=== PATIENT | male | born 1990 | race Caucasian/White ===

== ENCOUNTER 2019-05-05 11:06 | Emergency (ER) | payer BC ==
[2019-05-05 11:15] VITALS: BP 143/91; PULSE 71
[2019-05-05] MEDS ORDERED: Sodium Chloride 0.9% 10 ML Syringe FLUSH PRN (11:52)
--- NOTE | 2019-05-05 11:52 | EDM.PDOC ---
ED HPI GENERAL MEDICAL PROBLEM - General Chief Complaint: Abdominal Pain Stated Complaint: RT SIDE PAIN Time Seen by Provider: 05/05/19 11:27 Source of Information: Reports: Patient History Limitations: Reports: No Limitations - History of Present Illness INITIAL COMMENTS - FREE TEXT/NARRATIVE: Patient is a 28-year-old male who presents with complaints of right-sided abdominal pain that started around 8:00 this morning. The pain was not present at time of exam; however, patient states that at home it was fairly significant. He states that when he left his house the pain was intense, by the time he arrived to the ER parking lot the pain had improved to the point where he almost went home. The pain did then shortly return. He describes the pain as sharp that radiates to his back and groin. He has no nausea, vomiting, diarrhea, fever, or chills associated with this pain. He does note that this morning he had some burning with urination. He denies any visible blood in his urine. Patient does have a history of kidney stones with his last being approximately 6 years ago. He was able to pass that stone without intervention. He denies any chronic health problems. He does not take any daily medications. At this time he states the pain is not present so he does not feel that he needs any medications for pain or nausea. Right Abdomen Pain Score (Numeric/FACES): 8 - Related Data Allergies Allergy/AdvReac Type Severity Reaction Status Date / Time No Known Allergies Allergy Verified 08/28/14 13:44 Home Meds: Home Meds Acetaminophen/oxyCODONE [Percocet 325-5 MG] 1 each PO Q4HR PRN #10 tab 05/05/19 [Rx] Ondansetron [Zofran ODT] 4 mg PO Q6H PRN #10 tab.dis 05/05/19 [Rx] Tamsulosin [Tamsulosin 24 Hr] 0.4 mg PO DAILY #14 cap.er 05/05/19 [Rx] Past Medical History - Past Health History Medical/Surgical History: Denies Medical/Surgical History Genitourinary History: Reports: Renal Calculus - Past Surgical History GI Surgical History: Reports: Hernia, Inguinal Social & Family History - Tobacco Use Smoking Status *Q: Current Every Day Smoker Years of Tobacco use: 10 Packs/Tins Daily: 1 - Caffeine Use Caffeine Use: Reports: Coffee, Soda, Tea - Recreational Drug Use Recreational Drug Use: No ED ROS GENERAL - Review of Systems Review Of Systems: Comprehensive ROS is negative, except as noted in HPI. ED EXAM, RENAL/ - Physical Exam Exam: See Below Exam Limited By: No Limitations General Appearance: Alert, WD/WN, No Apparent Distress Respiratory/Chest: No Respiratory Distress, Lungs Clear, Normal Breath Sounds, No Accessory Muscle Use, Chest Non-Tender Cardiovascular: Normal Peripheral Pulses, Regular Rate, Rhythm, No Edema, No Gallop, No JVD, No Murmur, No Rub GI/Abdominal: Normal Bowel Sounds, Soft, Non-Tender, No Organomegaly, No Distention, No Abnormal Bruit, No Mass Back Exam: Normal Inspection, Full Range of Motion, CVA Tenderness (R) (Mild). No: CVA Tenderness (L) Neurological: Alert, Oriented, CN II-XII Intact, Normal Cognition, Normal Gait, Normal Reflexes, No Motor/Sensory Deficits Psychiatric: Normal Affect, Normal Mood Skin Exam: Warm, Dry, Intact, Normal Color, No Rash Course - Vital Signs Last Recorded V/S: Last Vital Signs Temp 98.3 F 05/05/19 11:12 Pulse 71 05/05/19 11:12 Resp 20 05/05/19 11:12 BP 143/91 H 05/05/19 11:12 Pulse Ox 100 05/05/19 11:12 - Orders/Labs/Meds Orders: Active Orders 24 hr Category Date Time Status Peripheral IV Care [RC] . DIRECTED Care 05/05/19 11:52 Active Strain Urine [RC] ASDIRECTED Care 05/05/19 13:54 Active Peripheral IV Insertion Adult [OM.PC] Stat Oth 05/05/19 11:52 Ordered Labs: Laboratory Tests 05/05/19 05/05/19 05/05/19 Range/Units 11:52 11:52 11:52 WBC 11.81 H (4.23-9.07) K/mm3 RBC 5.38 (4.63-6.08) M/mm3 Hgb 15.8 (13.7-17.5) gm/dl Hct 45.8 (40.1-51.0) % MCV 85.1 (79.0-92.2) fl MCH 29.4 (25.7-32.2) pg MCHC 34.5 (32.2-35.5) g/dl RDW Std Deviation 41.5 (35.1-43.9) fL Plt Count 308 (163-337) K/mm3 MPV 9.0 L (9.4-12.3) fl Neut % (Auto) 80.4 H (34.0-67.9) % Lymph % (Auto) 14.7 L (21.8-53.1) % [place] % (Auto) 4.2 L (5.3-12.2) % Eos % (Auto) 0.3 L (0.8-7.0) Baso % (Auto) 0.2 (0.1-1.2) % Neut # (Auto) 9.50 H (1.78-5.38) K/mm3 Lymph # (Auto) 1.74 (1.32-3.57) K/mm3 [place] # (Auto) 0.50 (0.30-0.82) K/mm3 Eos # (Auto) 0.03 L (0.04-0.54) K/mm3 Baso # (Auto) 0.02 (0.01-0.08) K/mm3 Sodium 139 (136-145) mEq/L Potassium 3.7 (3.5-5.1) mEq/L Chloride 103 (98-107) mEq/L Carbon Dioxide 26 (21-32) mEq/L Anion Gap 13.7 (5-15) BUN 9 (7-18) mg/dL Creatinine 1.0 (0.7-1.3) mg/dL Est Cr Clr Drug Dosing 99.66 mL/min Estimated GFR (MDRD) > 60 (>60) mL/min BUN/Creatinine Ratio 9.0 L (14-18) Glucose 113 H (74-106) mg/dL Calcium 9.6 (8.5-10.1) mg/dL Total Bilirubin 1.0 (0.2-1.0) mg/dL AST 13 L (15-37) U/L ALT 21 (16-63) U/L Alkaline Phosphatase 49 (46-116) U/L C-Reactive Protein <0.2 (<1.0) mg/dL Total Protein 7.9 (6.4-8.2) g/dl Albumin 4.4 (3.4-5.0) g/dl Globulin 3.5 gm/dL Albumin/Globulin Ratio 1.3 (1-2) Urine Color Yellow (Yellow) Urine Appearance Clear (Clear) Urine pH 7.0 (5.0-8.0) Ur Specific [place] 1.025 (1.005-1.030) Urine Protein Trace H (Negative) Urine Glucose (UA) Negative (Negative) Urine Ketones 1+ H (Negative) Urine Occult Blood 1+ H (Negative) Urine Nitrite Negative (Negative) Urine Bilirubin 1+ H (Negative) Urine Urobilinogen 1.0 (0.2-1.0) Ur Leukocyte Esterase Negative (Negative) Urine RBC 5-10 H (0-5) /hpf Urine WBC 0-5 (0-5) /hpf Ur Epithelial Cells 0-5 (0-5) /hpf Urine Bacteria Not seen (FEW) /hpf Urine Mucus Not seen (FEW) /hpf Meds: Medications Discontinued Medications Generic Name Dose Route Start Last Admin Trade Name Freq PRN Reason Stop Dose Admin Sodium Chloride 1,000 mls @ 999 mls/hr 05/05/19 12:00 05/05/19 12:03 Normal Saline IV 999 mls/hr ASDIRECTED TRAN Administration Sodium Chloride 10 ml 05/05/19 11:52 05/05/19 12:03 Saline Flush FLUSH 10 ml ASDIRECTED PRN Administration Keep Vein Open - Re-Assessments/Exams Free Text/Narrative Re-Assessment/Exam: 05/05/19 13:53 CT scan shows a slightly prominent right ureter caused by 3.6 mm obstructing stone within the distal right ureter at the UVJ. Patient has had no recurrence of pain or nausea while he was in the emergency department. We will send him with a strainer for his urine. I will also send a prescription for Percocet in case his pain should recur, Zofran, and Flomax. Discharge instructions as documented. Departure - Departure Time of Disposition: 14:00 Disposition: Home, Self-Care 01 Condition: Good Clinical Impression: Kidney stone - Discharge Information *PRESCRIPTION DRUG MONITORING PROGRAM REVIEWED*: Yes *COPY OF PRESCRIPTION DRUG MONITORING REPORT IN PATIENT RADHA: No Prescriptions: Acetaminophen/oxyCODONE [Percocet 325-5 MG] 1 each PO Q4HR PRN #10 tab PRN Reason: Pain Ondansetron [Zofran ODT] 4 mg PO Q6H PRN #10 tab.dis PRN Reason: Nausea/Vomiting Tamsulosin [Tamsulosin 24 Hr] 0.4 mg PO DAILY #14 cap.er Instructions: Kidney Stones, [id number] Referrals: PCP,None [Primary Care Provider] - Forms: ED Department Discharge Additional Instructions: You were seen in the emergency department today for right lower quadrant abdominal pain that radiated to your back. Your work-up included blood work, urinalysis, and a CT scan of your abdomen. CT scan did confirm a 3.6 mm obstructing stone within the right distal ureter. As we discussed, it was at the UVJ which indicates that it is almost cleared your ureter. You have been sent home with a urine strainer. Recommend that you strain your urine until you pass the stone. A prescription for Percocet, Zofran, and Flomax has been sent to the [facility]. Use these medications as prescribed. If you should experience any worsening symptoms, please do not hesitate to return to the emergency department. Sepsis Event Note - Evaluation Sepsis Screening Result: No Definite Risk - Focused Exam Date Exam was Performed: 05/06/19 Time Exam was Performed: 01:16 - My Orders Last 24 Hours: My Active Orders 05/05/19 11:52 Peripheral IV Care [RC] . DIRECTED Peripheral IV Insertion Adult [OM.PC] Stat 05/05/19 13:54 Strain Urine [RC] ASDIRECTED - Assessment/Plan Last 24 Hours: My Active Orders 05/05/19 11:52 Peripheral IV Care [RC] . DIRECTED Peripheral IV Insertion Adult [OM.PC] Stat 05/05/19 13:54 Strain Urine [RC] ASDIRECTED
[2019-05-05] MEDS ORDERED: Sodium Chloride 0.9% 1,000 ML IV SCH (12:00)
--- NOTE | 2019-05-05 13:32 | CT ---
CT abdomen and pelvis Comparison: Prior CT abdomen and pelvis study of 08/28/14. Technique: Multiple axial sections were obtained from above the dome of the diaphragm inferiorly through the pubic symphysis. Intravenous and oral contrast has not been given. Study performed as a ureteral stone protocol. Findings: Right ureter is mildly prominent. This finding is caused by an obstructing distal right ureteral stone located at the UVJ. This stone measures approximately 3.6 mm in size. No other ureteral calculi are seen. No renal calculi are identified. Visualized portions of the lung bases show nothing acute. Noncontrast appearance of the liver shows no discrete abnormality. Spleen appears normal in size. Adrenal glands show no nodule. Pancreas is within normal limits. Gallbladder contains no calcified gallstones. Aorta shows no aneurysm. No retroperitoneal adenopathy or mesenteric abnormalities are seen. No pelvic mass or adenopathy is identified. Appendix not visualized with certainty. Bone window settings were reviewed which appear within normal limits for the patient's age. Impression: 1. Slightly prominent right ureter caused by a 3.6 mm obstructing stone within the distal right ureter at the UVJ. 2. No other acute finding is appreciated. Diagnostic code #3 This report was dictated in [place] Standard Time
== END 2019-05-05 14:20 | disposition home or self-care (01) ==
LOC: JD.ED 11:06
DX: N20.2 Calculus of kidney with calculus of ureter (principal); F17.210 Nicotine dependence, cigarettes, uncomplicated
CPT/HCPCS: 36415; 74176; 80053; 81001; 85025; 86140; 96360; 99284; J7030